=== PATIENT | male | born 1960 | race African-American/Black ===

== ENCOUNTER 2021-02-19 16:17 | Emergency (ER) | payer SELFPAY ==
--- NOTE | 2021-02-19 16:21 | EDM.PDOC ---
ED HPI GENERAL MEDICAL PROBLEM - General Chief Complaint: Back Pain or Injury Stated Complaint: BACK AND ANKLE PAIN Time Seen by Provider: 02/19/21 16:20 Source of Information: Reports: Patient History Limitations: Reports: No Limitations - History of Present Illness INITIAL COMMENTS - FREE TEXT/NARRATIVE: HISTORY AND PHYSICAL: History of present illness: Patient is a 60-year-old male who presents to the emergency room with complaints of right ankle and lumbar back pain over the past 3 days. He states he has had problems with his right ankle for approximately 1 year, did have an x-ray in September in [place] and unsure of results. He denies any injury, trauma or falls of the extremity. Has had lumbar back pain with sciatica down the right glutes. Increased pain with flexion at the waist. He denies any urinary or fecal incontinence. Denies any numbness, tingling, saddle paresthesias. No injury or trauma of the lumbar spine. Denies any history of diabetes. Patient does have a history of hypertension, states he takes HCTZ. Patient denies any fever, chills, headache, change in vision, syncope or near syncope. Denies any chest pain, back pain, shortness of breath or cough. Denies any abdominal pain, nausea, vomiting, diarrhea, constipation or dysuria. Has not noted any blood in urine or stool. Patient has been eating and drinking appropriately. Review of systems: As per history of present illness and below otherwise all systems reviewed and negative. Past medical history: As per history of present illness and as reviewed below otherwise noncontr ibutory. Surgical history: As per history of present illness and as reviewed below otherwise noncontributory. Social history: See social history for further information Family history: As per history of present illness and as reviewed below otherwise noncontributory. Physical exam: General: Well developed and well nourished 60-year-old male. Alert and orientated x 3. Nontoxic in appearance and in no acute distress. Vital signs are stable and have been reviewed by me. Nursing notes were reviewed. HEENT: Atraumatic, normocephalic, pupils equal and reactive bilaterally, negative for conjunctival pallor or scleral icterus, mucous membranes moist, trachea midline. No drooling or trismus noted. No meningeal signs. No hot potato voice noted. Lungs: Clear to auscultation bilaterally. No wheezes, rales, or rhonchi. Chest nontender. Normal work of breathing, no accessory muscles used. Heart: S1S2, regular rate and rhythm without overt murmur, gallops, or rubs. No JVD. Abdomen: Soft, nondistended, nontender. Normoactive bowel sounds. Negative for masses or costovertebral tenderness. C-spine/Back: No pinpoint vertebral tenderness upon palpation. No crepitus, step-offs or obvious deformities. Patient is ambulatory into the emergency room without difficulty or deficit. Able to rock back on heels and walk on toes. Denies any urinary or fecal incontinence. Denies any numbness, tingling or saddle paresthesia. No concerns of serious infection, fracture or cord compression, or cauda equina syndrome. Deep tendon reflexes brisk bilaterally. Skin: Mild skin discoloration to bilateral anderson/ankles, denies any history of diabetes. Intact, warm, dry. No lesions or rashes noted. Hematologic: No petechiae or purpra. Mucosa appropriate color and normal nail bed color and refill. Extremities: Mild discomfort with palpation of the anterior and lateral right ankle. He moves all extremities per self without difficulty or deficits, negative for cords or calf pain. Strong pedal and pretibial pulse. See skin for details. Neurovascular unremarkable. Neuro: Awake, alert, oriented. Cranial nerves II through XII unremarkable. Cerebellum unremarkable. Motor and sensory unremarkable throughout. Exam nonfocal. Psychiatric: Mood and affect are appropriate. Normal thought process. Answering questions appropriately. Notes: *This patient was seen and evaluated during the 2019 SARS-CoV-2 novel coronavirus pandemic period. Community viral transmission is ongoing at time of this encounter and the emergency department is operating under pandemic response procedures. It is noted that the patient has elevated blood pressure during his ER visit today. He denies any chest pain, shortness of breath, cough or hemoptysis. He states he "always has high blood pressure" but does not recall what his blood pressure readings have been, has not had this evaluated since September 2020. States he takes HCTZ, unsure of dose. We will continue to monitor this. Patient's blood pressure remains elevated even after allowing him to rest for a few minutes. EKG was done. Patient continues to deny any respiratory/cardiovascular complaints. We will add a troponin on his lab work and add lisinopril to his regiment. Ankle x-ray shows osseous hypertrophy along the distal medial tibia lateral tibia in the region of syndesmotic ligaments, correlate with sequelae of prior high ankle sprain/trauma. Moderate to severe anterior tibiotalar joint space narrowing osteophyte formation and erosive change. Question posttraumatic arthropathy versus inflammatory arthropathy. 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 Diffuse soft tissue swelling. Lumbar spine x-ray shows mild degenerative changes. No acute osseous abnormality. Patient declines any new injury of the ankle, states its been going on for over a year. He is obese, states his gait changes due to pain - will place him in a CAM walker boot and give him follow up with orthopedics referral. I have talked with the patient about today's findings, in addition to providing specific details for plan of care. Reassessment at the time of disposition demonstrates that the patient is in no acute distress. Patient's blood pressure has improved, does not wish to stay any longer for blood pressure management/evaluation. The patient is stable for discharge, counseling was provided and we discussed in great detail signs and symptoms that would prompt them to return to the Emergency Department. Medication, follow up and supportive care measures were reviewed and discussed. Voices understanding and is agreeable to plan of care. Denies any further questions or concerns at this time. Diagnostics: CBC, CMP, UA, EKG, Troponin, Lumbar x-ray, ankle x-ray Therapeutics: Lisinopril, [place], CAM walker boot Prescription: Lisinopril/HCTZ, [place] Impression: Lumbar back pain Chronic ankle pain Unmanaged HTN Plan: 1. You were evaluated today on an emergent basis. Your lab work and x-ray are within normal limits. YOU NEED TO FOLLOW UP for your blood pressure. It is very important. Please take the combo pill of Lisinopril/HCTZ instead of HCTZ alone. 2. You can alternate Tylenol and ibuprofen as needed for pain and fever management. 3. We encourage you to follow up with your primary care provider and/or recommended specialist in the next few days for re-evaluation and further care/management. 4. If your symptoms should worsen, new symptoms develop or any of the signs and symptoms we discussed should arise please return to the emergency room or call 911 (if needed). Definitive disposition and diagnosis as appropriate pending reevaluation and review of above. Back Pain Score (Numeric/FACES): 10 - Related Data Allergies Allergy/AdvReac Type Severity Reaction Status Date / Time No Known Allergies Allergy Verified 02/19/21 16:38 Home Meds: Home Meds Acetaminophen/oxyCODONE [Percocet 325-5 MG] 1 each PO Q6HR PRN #20 tab 02/19/21 [Rx] Lisinopril/Hydrochlorothiazide [Lisinopril-Hctz 10-12.5 mg Tab] 1 each PO DAILY 30 Days #30 tablet 02/19/21 [Rx] hydroCHLOROthiazide [Hydrochlorothiazide] 1 tab PO DAILY 02/19/21 [History] ED ROS GENERAL - Review of Systems Review Of Systems: Comprehensive ROS is negative, except as noted in HPI. ED EXAM,LOWER BACK PAIN/INJURY - Physical Exam Exam: See Below (See dictation) Course - Vital Signs Last Recorded V/S: Last Vital Signs Temp 98.9 F 02/19/21 16:38 Pulse 97 02/19/21 19:05 Resp 20 02/19/21 18:39 BP 187/108 H 02/19/21 19:05 Pulse Ox 93 L 02/19/21 19:05 - Orders/Labs/Meds Orders: Active Orders 24 hr Category Date Time Status EKG Documentation Completion [RC] STAT Care 02/19/21 17:33 Active DME for Discharge [COMM] Stat Oth 02/19/21 19:28 Ordered Labs: Laboratory Tests 02/19/21 02/19/21 02/19/21 Range/Units 16:36 16:55 16:55 WBC 6.76 (4.0-11.0) K/uL RBC 6.66 H (4.50-5.90) M/uL Hgb 18.6 H (13.0-17.0) g/dL Hct 60.1 H (38.0-50.0) % MCV 90.2 (80.0-98.0) fL MCH 27.9 (27.0-32.0) pg MCHC 30.9 L (31.0-37.0) g/dL RDW Std Deviation 56.3 (28.0-62.0) fl RDW Coeff of [place] 18 H (11.0-15.0) % Plt Count 220 (150-400) K/uL Neut % (Auto) 64.7 (48.0-80.0) % Lymph % (Auto) 26.8 (16.0-40.0) % [place] % (Auto) 7.2 (0.0-15.0) % Eos % (Auto) 1.2 (0.0-7.0) % Baso % (Auto) 0.1 (0.0-1.5) % Neut # (Auto) 4.4 (1.4-5.7) K/uL Lymph # (Auto) 1.8 (0.6-2.4) K/uL [place] # (Auto) 0.5 (0.0-0.8) K/uL Eos # (Auto) 0.1 (0.0-0.7) K/uL Baso # (Auto) 0.0 (0.0-0.1) K/uL Nucleated RBC % 0.0 /100WBC Nucleated RBCs # 0 K/uL Sodium 142 (136-148) mmol/L Potassium 4.1 (3.5-5.1) mmol/L Chloride 105 (98-107) mmol/L Carbon Dioxide 31.2 (21.0-32.0) mmol/L BUN 19 H (7.0-18.0) mg/dL Creatinine 1.2 (0.8-1.3) mg/dL Est Cr Clr Drug Dosing 59.67 mL/min Estimated GFR (MDRD) > 60.0 ml/min Glucose 144 H (74-106) mg/dL Calcium 8.8 (8.5-10.1) mg/dL Total Bilirubin 0.2 (0.2-1.0) mg/dL AST 21 (15-37) IU/L ALT 62 (14-63) IU/L Alkaline Phosphatase 103 (46-116) U/L Troponin I (0.000-0.056) ng/mL Total Protein 7.6 (6.4-8.2) g/dL Albumin 3.1 L (3.4-5.0) g/dL Globulin 4.5 H (2.6-4.0) g/dL Albumin/Globulin Ratio 0.7 L (0.9-1.6) Urine Color YELLOW Urine Appearance CLEAR Urine pH 6.0 (5.0-8.0) Ur Specific [place] >= 1.030 (1.001-1.035) Urine Protein >=300 H (NEGATIVE) mg/dL Urine Glucose (UA) NEGATIVE (NEGATIVE) mg/dL Urine Ketones NEGATIVE (NEGATIVE) mg/dL Urine Occult Blood TRACE-INTACT H (NEGATIVE) Urine Nitrite NEGATIVE (NEGATIVE) Urine Bilirubin NEGATIVE (NEGATIVE) Urine Urobilinogen 0.2 (<2.0) EU/dL Ur Leukocyte Esterase NEGATIVE (NEGATIVE) Urine RBC 0-2 (0-2/HPF) Urine WBC 2-3 (0-5/HPF) Ur Epithelial Cells NOT SEEN (NONE-FEW) Amorphous Sediment FEW (NEGATIVE) Urine Bacteria FEW (NEGATIVE) Urine Mucus FEW (NONE-MOD) 02/19/21 Range/Units 16:55 WBC (4.0-11.0) K/uL RBC (4.50-5.90) M/uL Hgb (13.0-17.0) g/dL Hct (38.0-50.0) % MCV (80.0-98.0) fL MCH (27.0-32.0) pg MCHC (31.0-37.0) g/dL RDW Std Deviation (28.0-62.0) fl RDW Coeff of [place] (11.0-15.0) % Plt Count (150-400) K/uL Neut % (Auto) (48.0-80.0) % Lymph % (Auto) (16.0-40.0) % [place] % (Auto) (0.0-15.0) % Eos % (Auto) (0.0-7.0) % Baso % (Auto) (0.0-1.5) % Neut # (Auto) (1.4-5.7) K/uL Lymph # (Auto) (0.6-2.4) K/uL [place] # (Auto) (0.0-0.8) K/uL Eos # (Auto) (0.0-0.7) K/uL Baso # (Auto) (0.0-0.1) K/uL Nucleated RBC % /100WBC Nucleated RBCs # K/uL Sodium (136-148) mmol/L Potassium (3.5-5.1) mmol/L Chloride (98-107) mmol/L Carbon Dioxide (21.0-32.0) mmol/L BUN (7.0-18.0) mg/dL Creatinine (0.8-1.3) mg/dL Est Cr Clr Drug Dosing mL/min Estimated GFR (MDRD) ml/min Glucose (74-106) mg/dL Calcium (8.5-10.1) mg/dL Total Bilirubin (0.2-1.0) mg/dL AST (15-37) IU/L ALT (14-63) IU/L Alkaline Phosphatase (46-116) U/L Troponin I < 0.050 (0.000-0.056) ng/mL Total Protein (6.4-8.2) g/dL Albumin (3.4-5.0) g/dL Globulin (2.6-4.0) g/dL Albumin/Globulin Ratio (0.9-1.6) Urine Color Urine Appearance Urine pH (5.0-8.0) Ur Specific [place] (1.001-1.035) Urine Protein (NEGATIVE) mg/dL Urine Glucose (UA) (NEGATIVE) mg/dL Urine Ketones (NEGATIVE) mg/dL Urine Occult Blood (NEGATIVE) Urine Nitrite (NEGATIVE) Urine Bilirubin (NEGATIVE) Urine Urobilinogen (<2.0) EU/dL Ur Leukocyte Esterase (NEGATIVE) Urine RBC (0-2/HPF) Urine WBC (0-5/HPF) Ur Epithelial Cells (NONE-FEW) Amorphous Sediment (NEGATIVE) Urine Bacteria (NEGATIVE) Urine Mucus (NONE-MOD) Meds: Medications Discontinued Medications Generic Name Dose Route Start Last Admin Trade Name Freq PRN Reason Stop Dose Admin Hydrocodone Bitart/Acetaminophen 1 tab 02/19/21 16:35 02/19/21 16:55 Acetaminophen/Hydrocodone 325-5 Mg Tab PO 02/19/21 16:36 1 tab ONETIME ONE Administration Lisinopril 10 mg 02/19/21 17:34 02/19/21 17:45 Lisinopril 10 Mg Tab PO 02/19/21 17:35 10 mg ONETIME ONE Administration Departure - Departure Time of Disposition: 19:27 Disposition: Home, Self-Care 01 Clinical Impression: Lumbar back pain, Uncontrolled hypertension Chronic ankle pain Qualifiers: Laterality: right Qualified Code(s): M25.571 - Pain in right ankle and joints of right foot; G89.29 - Other chronic pain - Discharge Information Prescriptions: Lisinopril/Hydrochlorothiazide [Lisinopril-Hctz 10-12.5 mg Tab] 1 each PO DAILY 30 Days #30 tablet Acetaminophen/oxyCODONE [Percocet 325-5 MG] 1 each PO Q6HR PRN #20 tab PRN Reason: Pain (Moderate 4-6) Instructions: Hypertension, Adult Referrals: PCP,None [Primary Care Provider] - Forms: ED Department Discharge Additional Instructions: The following information is given to patients seen in the emergency department who are being discharged to home. This information is to outline your options for follow-up care. We provide all patients seen in our emergency department with a follow-up referral. The need for follow-up, as well as the timing and circumstances, are variable depending upon the specifics of your emergency department visit. If you don't have a primary care physician on staff, we will provide you with a referral. We always advise you to contact your personal physician following an emergency department visit to inform them of the circumstance of the visit and for follow-up with them and/or the need for any referrals to a consulting specialist. The emergency department will also refer you to a specialist when appropriate. This referral assures that you have the opportunity for follow-up care with a specialist. All of these measure are taken in an effort to provide you with optimal care, which includes your follow-up. Under all circumstances we always encourage you to contact your private physician who remains a resource for coordinating your care. When calling for follow-up care, please make the office aware that this follow-up is from your recent emergency room visit. If for any reason you are refused follow-up, please contact the [facility] Emergency Department at and asked to speak to the emergency department charge nurse. [facility] [address] [place] [id number] [facility] [address] [place] [address] Thank you for choosing the [facility] emergency department in [place] for your medical needs today. It was a pleasure caring for you. Today you were seen in the emergency department for back pain and ankle pain. 1. You were evaluated today on an emergent basis. Your lab work and x-ray are within normal limits. YOU NEED TO FOLLOW UP for your blood pressure. It is very important. Please take the combo pill of Lisinopril/HCTZ instead of HCTZ alone. 2. You can alternate Tylenol and ibuprofen as needed for pain and fever management. 3. We encourage you to follow up with your primary care provider and/or recommended specialist in the next few days for re-evaluation and further care/management. 4. If your symptoms should worsen, new symptoms develop or any of the signs and symptoms we discussed should arise please return to the emergency room or call 911 (if needed). Sepsis Event Note (ED) - Focused Exam Vital Signs: Vital Signs Temp Pulse Resp BP BP Pulse Ox 02/19/21 19:05 97 187/108 H 93 L 02/19/21 18:39 90 20 234/166 H 92 L 02/19/21 17:45 221/132 H 02/19/21 17:28 94 199/108 H 02/19/21 16:38 98.9 F 104 H 24 H 220/127 H 90 L - My Orders Last 24 Hours: My Active Orders 02/19/21 17:33 EKG Documentation Completion [RC] STAT 02/19/21 19:28 DME for Discharge [COMM] Stat - Assessment/Plan Last 24 Hours: My Active Orders 02/19/21 17:33 EKG Documentation Completion [RC] STAT 02/19/21 19:28 DME for Discharge [COMM] Stat
[2021-02-19] MEDS ORDERED: Acetaminophen/HYDROcodone 325-5 MG Tab PO ONE (16:35)
[2021-02-19] MEDS ORDERED: Lisinopril 10 MG Tab PO ONE (17:34)
[2021-02-19 17:45] LABS: BLOOD UREA NITROGEN,BUN 19 mg/dL (7.0-18.0); CARBON DIOXIDE,CO2 31.2 mmol/L (21.0-32.0); CHLORIDE,CL 105 mmol/L (98-107); GLUCOSE RANDOM 144 mg/dL (74-106); POTASSIUM,K 4.1 mmol/L (3.5-5.1); SODIUM,NA 142 mmol/L (136-148)
--- NOTE | 2021-02-19 17:55 | PCM.EKG ---
#1 Interpretation EKG Date: 02/19/21 Time: 17:40 Rhythm: NSR Rate (Beats/Min): 92 ST-T: Other (slight elevation v2 and v3 no STEMI)
--- NOTE | 2021-02-19 18:23 | CR ---
INDICATION: Pain and swelling. COMPARISON: None. TECHNIQUE: Lumbar spine 3 views. FINDINGS: Hypoplastic ribs at T12. Vertebral body heights are maintained. Alignment is within normal limits. Mild disc height loss at L5-S1. Facet arthropathy. IMPRESSION: Mild degenerative changes. No acute osseous abnormality. Dictated by Martín May MD @ Feb 19 2021 6:18PM Signed by Dr. Martín May @ Feb 19 2021 6:22PM
--- NOTE | 2021-02-19 18:29 | CR ---
INDICATION: Pain and swelling. COMPARISON: None. TECHNIQUE: Right ankle 3 views. FINDINGS: Osseous hypertrophy along the distal lateral tibia with possible erosive change. Anterior tibiotalar joint space narrowing, osteophytes and possible erosions on lateral view. Medial clear space widening measuring 8 mm. Diffuse soft tissue swelling. Plantar calcaneal spur. No acute fracture is seen. IMPRESSION: 1. Osseous hypertrophy along the distal medial tibia lateral tibia in the region of syndesmotic ligaments, correlate with sequelae of prior high ankle sprain/trauma. 2. Moderate to severe anterior tibiotalar joint space narrowing osteophyte formation and erosive change. Question posttraumatic arthropathy versus inflammatory arthropathy. 3. 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 4. Diffuse soft tissue swelling. Dictated by Martín May MD @ Feb 19 2021 6:18PM Signed by Dr. Martín May @ Feb 19 2021 6:27PM
== END 2021-02-19 19:51 | disposition home or self-care (01) ==
LOC: MW.ED 16:17
DX: M54.5 Low back pain (principal); M25.571 Pain in right ankle and joints of right foot; G89.29 Other chronic pain; I10 Essential (primary) hypertension; Z79.899 Other long term (current) drug therapy
CPT/HCPCS: 36415; 72100; 73610; 80053; 81001; 84484; 85025; 93005; 99284; A9270; 93010; 99283